=== PATIENT | male | born 1990 | race Two or more races ===

== ENCOUNTER 2023-01-12 10:19 | Emergency (ER) | payer MEDICAID, OTHER ==
[~2023-01-12] VITALS: Ht 160 cm; Wt 89.9 kg
[2023-01-12 10:34] VITALS: BP 135/96
[2023-01-12] MEDS ORDERED: CLINDAMYCIN 600MG IV 50 ML IV ONE (11:15)
[2023-01-12] MEDS ORDERED: KETOROLAC TROMETH 30 MG/ML 1ML VIAL IV ONE (11:15)
[2023-01-12] MEDS ORDERED: cefTRIAXone 1GM/50ML D5W 50 ML IV ONE (11:15)
[2023-01-12] MEDS ORDERED: IBUP800T27 PO (11:58)
[2023-01-12] MEDS ORDERED: CLIN300C8 PO (11:58)
== END 2023-01-12 12:19 | disposition home or self-care (01) ==
LOC: ER 10:19
DX: K04.7 Periapical abscess without sinus (principal); Z88.6 Allergy status to analgesic agent; Z88.1 Allergy status to other antibiotic agents
CPT/HCPCS: 41800; 96365; 96368; 96375; 99284; J0696; J1885; J3490

== ENCOUNTER 2023-04-22 03:03 | Emergency (ER) | payer SELFPAY ==
[~2023-04-22] VITALS: Ht 162.6 cm; Wt 90.0 kg
[~2023-04-22 03:03] MED LIST: CLIN300C70 PO; IBUP-1456 PO
[2023-04-22] MEDS ORDERED: SODIUM CHLORIDE 0.9% 1,000 ML IVB ONE (03:30)
[2023-04-22 03:45] VITALS: BP 142/70; PULSE 80; RESP 18; TEMP 98.4; O2SAT 100
== END 2023-04-22 03:40 ==
LOC: ER 03:03
DX: S40.022A Contusion of left upper arm, initial encounter (principal); X58.XXXA Exposure to other specified factors, initial encounter; Y93.89 Activity, other specified; Y92.89 Other specified places as the place of occurrence of the external cause; Y99.8 Other external cause status